=== PATIENT | female | born 1990 | race Caucasian/White ===

== ENCOUNTER 2019-12-19 06:46 | Day surgery (SDC) | payer OTHER ==
[~2019-12-19 06:46] MED LIST: Buffered Lidocaine 1% SYRIN* 1 ML/SYRINGE INTRADERM ONE; Lactated Ringers 1000 ML Bag* 1,000 ML IV SCH
[2019-12-19] MEDS ORDERED: Buffered Lidocaine 1% SYRIN* 1 ML/SYRINGE INTRADERM ONE (07:26)
[2019-12-19] MEDS ORDERED: Lidocaine 1% INJ* 10 MG/ML 30 ML SDV ONE (08:02)
[2019-12-19] MEDS ORDERED: Bupivacaine 0.25% SDV PF* 10 ML VIAL INJ ONE (08:02)
[2019-12-19] MEDS ORDERED: HYDROmorphone INJ1* 1 MG/ML SYRINGE IV PRN (08:15)
[2019-12-19] MEDS ORDERED: Ondansetron INJ* 2 MG/ML VIAL IV PRN (08:15)
[2019-12-19] MEDS ORDERED: Naloxone* 0.4 MG/ML 1 ML VIAL IV PRN (08:15)
[2019-12-19] MEDS ORDERED: Propofol* 10 MG/ML 20 ML BTL ONE (08:37)
[2019-12-19] MEDS ORDERED: HYDROmorphone INJ1* 1 MG/ML SYRINGE ONE (08:37)
[2019-12-19] MEDS ORDERED: Rocuronium* 10 MG/ML VIAL ONE (08:37)
[2019-12-19] MEDS ORDERED: Dexamethasone IV* 4 MG/ML 1 ML (4 MG) ONE (09:35)
[2019-12-19] MEDS ORDERED: Ondansetron INJ* 2 MG/ML VIAL ONE ×2 (11:15→11:48)
[2019-12-19] MEDS ORDERED: Sugammadex * 200 MG/2 ML VIAL IV PUSH ONE (11:15)
[2019-12-19] MEDS ORDERED: Ketorolac INJ* 30 MG/ML 1 ML VIAL ONE (11:15)
[2019-12-19] MEDS ORDERED: oxyCODONE/Acetamin 5/325 MG* TAB PO PRN (11:41)
[2019-12-19] MEDS ORDERED: Famotidine IV* 10 MG/ML 2 ML (20 mg) IV SLOW PU ONE (12:46)
[2019-12-19] MEDS ORDERED: Famotidine IV* 10 MG/ML 2 ML (20 mg) ONE (12:51)
[2019-12-19 17:03] VITALS: BP 116/73
--- NOTE | 2019-12-19 17:32 | OP ---
CC: Dr. Kamar Melton * DATE OF OPERATION: 12/19/19 - SDS DATE OF : 89 SERVICE: General Surgery. SURGEON: Cuca Cook MD SALES COACH: Jennifer Navarro NP ANESTHESIOLOGIST: James Smith MD ANESTHESIA: General endotracheal anesthesia. PRE-OP DIAGNOSIS: Papillary thyroid cancer. POST-OP DIAGNOSIS: Papillary thyroid cancer. OPERATIVE PROCEDURE: Total thyroidectomy and right lower parathyroid autotransplantation. SPECIMENS: Right and left thyroid lobes. ESTIMATED BLOOD LOSS: Minimal, less than 10 cc. INDICATIONS FOR SURGERY: Ms. Elias is a very pleasant 29-year-old female with a history of multiple thyroid nodules. She underwent an FNA biopsy of her two thyroid nodules (one located on the right side and another on the left isthmus) and the pathology of both nodules returned positive for papillary thyroid carcinoma. She was therefore referred for a total thyroidectomy. She understood that the risks included, but were not limited to bleeding, infection , injury to nearby structures including the recurrent laryngeal nerve. She understood the alternatives and benefits as well and she wished to proceed. DESCRIPTION OF PROCEDURE: The patient was brought back to the operating room and placed on the operating table in a supine position. Sequential compression devices were placed on the bilateral lower extremities for DVT prophylaxis. No antibiotics were administered. General endotracheal anesthesia was induced and the electrodes for the nerve monitor were attached. Next, a time-out was performed prior to administering local anesthesia to the neck, which consisted of 0.25% Marcaine and 1% lidocaine mixed. After this, her neck was prepped and draped in normal sterile fashion. Prior to beginning the actual surgery, a second time-out was performed verifying the patient's name, date of , and the procedure to be performed. Next, a 4 cm incision was made in the lower neck approximately 2 finger-breadths above the sternal notch. The skin was divided down to the subcutaneous tissue and platysma was divided. The inferior and superior subplatysmal flaps were the developed and then the median raphe between the strap muscles was identified and divided all the way down to the isthmus. Next, the isthmus was divided off of the trachea posteriorly using LigaSure. She was noted to have a small pyramidal lobe that ascended somewhat to the right of the trachea. This was traced up to its apex and divided superiorly and taken with the right lobe specimen. Next, the attachments of the right lobe to the trachea were divided using LigaSure and then the strap muscles were retracted laterally off of the right thyroid lobe. The middle thyroid vein was identified and divided and the superior pole vessels were then isolated and divided using a combination of 2-0 silk sutures and LigaSure. After this, the right thyroid lobe was rotated anteriorly and medially out of the neck. The recurrent laryngeal nerve was identified both visually and with nerve monitor. The right upper parathyroid gland was also identified and preserved. After the recurrent laryngeal nerve was traced out of its entire course as it inserted into the inferior constrictor muscles, the thyroid lobe was able to be taken off safely off the trachea using LigaSure. Its upper pole was marked. It was examined for parathyroid glands and the right lower parathyroid gland was identified. It was removed and saved for later autotransplantation. After this, attention was turned towards the left thyroid lobe. In a similar fashion, the medial attachments from the left thyroid lobe to the trachea were divided using LigaSure. The space of Plasencia was then developed. The strap muscles were retracted laterally off of the thyroid gland. Of note, her thyroid carcinoma on the left side was palpable near the isthmus. After retracting off the strap muscles, the middle thyroid vein was identified and divided and the superior pole vessels were divided using a combination of 2-0 silk sutures and LigaSure. Next, the left thyroid lobe was able to be rotated medially and anteriorly out of the neck. The recurrent laryngeal nerve was identified in its entire course up until where it inserted into the inferior constrictor muscles. After it was identified, the thyroid lobe was able to be safely taken off the trachea using LigaSure. Its upper pole was marked with a suture and it was carried off as a specimen after examining for parathyroid glands, none of which were identified. The left upper and left lower parathyroid glands were not definitively identified. After this, hemostasis was obtained in the right and left lateral necks. Tisseel was placed and then the strap muscles were reapproximated using interrupted 4-0 Vicryl sutures. Of note, none of the central neck lymph nodes appeared to be cancerous. A small pocket was made in the right strap muscles and then the right lower parathyroid gland was macerated slightly and then placed into the muscular pocket. A 4-0 Vicryl suture was used to close this pocket. Next, the platysma was reapproximated using 4-0 Vicryl sutures. The skin was closed using a running 5-0 Prolene suture. Sterile dressing was then placed. The patient's anesthesia was reversed and she was taken to the PACU in stable condition. At the end of the case, all counts were correct and I was present during the entirety of the case. [id number]/[facility] #: [id number] [place]
== END 2019-12-19 17:33 | disposition home or self-care (01) ==
LOC: OR 06:46
PROVIDERS: ATTEND Surgery
DX: C73 Malignant neoplasm of thyroid gland (principal); Z88.0 Allergy status to penicillin; Z88.1 Allergy status to other antibiotic agents; J45.909 Unspecified asthma, uncomplicated; F41.9 Anxiety disorder, unspecified
CPT/HCPCS: 81025; 88307; C1776; J1100; J1170; J1885; J2405; J2704; J3490